=== PATIENT | male | born 1935 | race Caucasian/White ===

== ENCOUNTER 2017-08-16 14:13 | Outpatient (CLI) ==
[2016-02-20 15:17] VITALS: BMI 27.3
--- NOTE | 2017-08-16 15:04 | DI ---
EXAM: Pelvis AP view, bilateral hips lateral views HISTORY: Hip joint pain. FINDINGS / IMPRESSION: Trabecular markings are accentuated consistent with at least mild, diffuse demineralization. Questionable focal, subtle subchondral irregularity of the left medial aspect of the left femoral hea d. This could be post-traumatic or arthritic in nature. Hip joints were otherwise within normal limit s. Sacroiliac joints within normal limits. Transitional vertebral body anatomy at the lumbosacral junction is incidentally noted.
== END 2017-08-16 14:14 | disposition home or self-care (01) ==
LOC: RAD 14:13
PROVIDERS: ATTEND Family Medicine
DX: M25.551 Pain in right hip (principal)

== ENCOUNTER 2018-04-20 10:19 | Emergency (ER) | payer OTHER ==
[2018-04-20 10:26] VITALS: BP 110/64; TEMP 97.6; BMI 25.5
[2018-04-20] MEDS ORDERED: ASPIRIN CHEWABLE PO STA (10:42)
[2018-04-20] MEDS ORDERED: DILAUDID 0.5 MG/0.5 ML SYRINGE IVP STA (10:44)
--- NOTE | 2018-04-20 12:02 | ED.PDOC ---
General ED Provider: Dr. SHAUN CUENCA Chief Complaint: Chest Pain Stated Complaint: chest pain Time Seen by Physician: 10:20 Mode of Arrival: Walk-In Information Source: Patient Exam Limitations: No limitations Primary Care Provider: LIBBY VIDALES Nursing and Triage Documentation Reviewed and Agree: Yes Does patient meet sepsis criteria?: No System Inflammatory Response Syndrome: Not Applicable Sepsis Protocol: For patient's 13 years and over: Temp is 96.8 and below OR 101 and greater Pulse >90 BPM Resp >20/minute Acutely Altered Mental Status Are patient's symptoms suggestive of a new infection, such as: -Pneumonia -Skin, Soft Tissue -Endocarditis -UTI -Bone, Joint Infection -Implantable Device -Acute Abdominal Infection -Wound Infection -Meningitis -Blood Stream Catheter Infection -Unknown Cardiovascular Complaint Exam - Chest Pain Complaint/Exam Onset: Gradual Duration: 2 days leftside/left later chest pain steady Symptoms Are: Resolved Timing: Constant Length of Chest Pain Episodes: see above Initial Severity: Mild Current Severity: None Location: Reports: Midsternal, Left anterior Pain Radiates: Reports: None Character: Reports: Dull Aggravating: Reports: None Alleviating: Reports: Rest Associated Signs and Symptoms: Denies: Diaphoresis, Nausea, Vomiting, Fever, Palpitations, Cough, Hemoptysis, Back pain, Abdominal pain, Dizziness, Short of air, Calf pain, Calf swelling Related History: Reports: Similar episode Related Surgical History: Reports: Cardiac Cath (stent) History of Healthcare-Acquired Pneumonia: Reports: No AMI/ACS Risk Factors: Reports: Diabetes, Hypertension, Dyslipidemia TAD Risk Factors: Reports: Hypertension Pulmonary Embolism Risk Factors: Reports: None Prior Care for this Complaint: Yes (stent ) Recent Stress Test: No Recent Echo/LV Function: No JVD Present: No Subcutaneous Emphysema Present: No Diminshed Breath Sounds: No Reproducible Chest Wall Pain: No Bilateral Pulses Present: No If Risk Factors for AMI/ACS Consider: EKG, Cardiac Enzymes Differential Diagnoses: ACS, Stable Angina, Lower Resp. Infection Quality Indicators For Acute NM or Cardiac Chest Pain: EKG in 10min. Quality Indicator For Non-Traumatic Chest Pain/Syncope: EKG Performed Review of Systems - Review Of Systems Constitutional: Reports: No symptoms Eyes: Reports: No symptoms Ears, Nose, Mouth, Throat: Reports: No symptoms Respiratory: Reports: No symptoms Cardiac: Reports: Chest pain GI: Reports: No symptoms : Reports: No symptoms Musculoskeletal: Reports: No symptoms Skin: Reports: No symptoms Neurological: Reports: No symptoms Endocrine: Reports: No symptoms Hematologic/Lymphatic: Reports: No symptoms All Other Systems: Reviewed and Negative Past Medical History - Past Medical History Previously Healthy: No Endocrine: Reports: DM 2, Dyslipidemia Cardiovascular: Reports: CAD, Hypertension Respiratory: Reports: None Hematological: Reports: None Gastrointestinal: Reports: GERD Genitourinary: Reports: None Neuro/Psych: Reports: TIA Musculoskeletal: Reports: Arthritis Cancer: Reports: None - Surgical History General Surgical History: Reports: None, Stent (Stent Placement 2009 X2 HEART), Orthopedic (Neck Surgery 1992 ) - Family History Family History: Reports: None - Social History Smoking Status: Former smoker Hx Substance Use: No Alcohol Screening: None Physical Exam - Physical Exam Appearance: Well-appearing, No pain distress, Well-nourished Eyes: FRANK, EOMI, Conjunctiva clear ENT: Ears normal, Nose normal, Oropharynx normal Respiratory: Airway patent, Breath sounds clear, Breath sounds equal, Respirations nonlabored Cardiovascular: RRR, Pulses normal, No rub, No murmur GI/: Soft, Nontender, No masses, Bowel sounds normal, No Organomegaly Musculoskeletal: Normal strength, ROM intact, No edema, No calf tenderness Skin: Warm, Dry, Normal color Neurological: Sensation intact, Motor intact, Reflexes intact, Cranial nerves intact, Alert, Oriented Psychiatric: Affect appropriate, Mood appropriate Interpretation - Radiology Interpretation Radiology Interpretation By: Radiologist Radiology Results: No acute changes - Coffee Urn Attendant Rate: Dave Rhythm: Sinus - EKG Interpretation Rate: Dave Rhythm: Sinus [place]: Left ST Segment: Other (loss of the T wave BALANCE on lead v1 (usually negative) and the fact that amplitude of the T wave in v1 is greater than v6 T wave consistent with ischemia , 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.) Physician Notification - Case Discussed Physician Notified: pmd Time of Notification: 12:08 (transfer to [facility]) Critical Care Note - Critical Care Note Total Time (mins): 0 Course - Course Hematology/Chemistry: 04/20/18 10:45 04/20/18 10:45 Orders, Labs, Meds: Lab Review 04/20/18 04/20/18 10:45 10:45 WBC 4.17 L RBC 4.08 L Hgb 12.3 L Hct 36.6 L MCV 89.7 MCH 30.1 MCHC 33.6 RDW Coeff of Augustina 13.1 Plt Count 140 Immature Gran % (Auto) 0.0 Neut % (Auto) 53.1 Lymph % (Auto) 28.5 Tripp % (Auto) 9.8 Eos % (Auto) 7.4 H Baso % (Auto) 1.2 Immature Gran # (Auto) 0.0 Neut # (Auto) 2.2 Lymph # (Auto) 1.2 Tripp # (Auto) 0.4 Eos # (Auto) 0.3 Baso # (Auto) 0.1 Sodium 139 Potassium 4.3 Chloride 105 Carbon Dioxide 28 Anion Gap 10.3 BUN 17 Creatinine 1.10 Estimated GFR (MDRD) 64.00 BUN/Creatinine Ratio 15.45 Glucose 196 H Calcium 9.0 Total Bilirubin 1.0 AST 19 ALT 16 Alkaline Phosphatase 47 L Total Creatine Kinase 53 Troponin I 0.0130 Total Protein 6.7 Albumin 3.5 Globulin 3.2 Albumin/Globulin Ratio 1.09 Orders Category Date Time Status EKG-(ED ONLY) Stat CARDIO 04/20/18 10:39 Completed ED IV/MEDIPORT/POWERPORT .ONCE EMERGENCY 04/20/18 10:39 Active CBC W/ AUTO DIFF Stat LAB 04/20/18 10:45 Completed COMPREHENSIVE METABOLIC PANEL Stat LAB 04/20/18 10:45 Completed CREATINE KINASE Stat LAB 04/20/18 10:45 Completed TROPONIN I Stat LAB 04/20/18 10:45 Completed 0.9 % Sodium Chloride [Saline Flush] MEDS 04/20/18 10:38 Active 1 syr IVF PRN PRN Aspirin [Aspirin Chewable] MEDS 04/20/18 10:42 Discontinued 324 mg PO ONCE STA Hydromorphone HCl [Dilaudid 0.5 mg/0.5 ml Syringe] MEDS 04/20/18 10:44 Discontinued 0.5 mg IVP ONCE STA CHEST, 1V AP ONLY Stat RADS 04/20/18 11:57 Ordered Medications Generic Name Dose Route Start Last Admin Trade Name Freq PRN Reason Stop Dose Admin Sodium Chloride 1 syr 04/20/18 10:38 04/20/18 10:53 Saline Flush IVF 1 syr PRN PRN Administration To flush IV Discontinued Medications Generic Name Dose Route Start Last Admin Trade Name Freq PRN Reason Stop Dose Admin Aspirin 324 mg 04/20/18 10:42 04/20/18 10:54 Aspirin Chewable PO 04/20/18 10:43 324 mg ONCE STA Administration Hydromorphone HCl 0.5 mg 04/20/18 10:44 04/20/18 11:02 Dilaudid 0.5 Mg/0.5 Ml Syringe IVP 04/20/18 10:45 0.5 mg ONCE STA Administration Vital Signs: Temp Pulse Resp BP Pulse Ox 04/20/18 10:19 97.6 F 58 L 20 110/64 95 DELORES Risk Score DELORES Risk Score: Risk Score Odds of by 30D 0 0.1 (0.1-0.2) 1 0.3 (0.2-0.3) 2 0.4 (0.3-0.5) 3 0.7 (0.6-0.9) 4 1.2 (1.0-1.5) 5 2.2 (1.9-2.6) 6 3.0 (2.5-3.6) 7 4.8 (3.8-6.1) Departure - Departure Time of Disposition: 13:00 Disposition: TSF SHORT-TRM HOSP Discharge Problem: Chest pain Chest pain Qualifiers: Chest pain type: unspecified Qualified Code(s): R07.9 - Chest pain, unspecified Instructions: Angina (ED) Condition: Good Pt referred to PMD for follow-up: Yes IPMP verified?: No Additional Instructions: Please call your Family Physician as soon as possible to schedule a follow-up appointment. Allergies/Adverse Reactions: Allergies No Known Allergies Allergy (Verified 04/20/18 10:29) Home Medications: Ambulatory Orders Aspirin [Aspirin EC] 81 mg PO DAILYWM 09/16/15 Escitalopram Oxalate [Lexapro] 20 mg PO DAILY 12/03/15 Metoprolol Tartrate [Lopressor] 50 mg PO DAILY 12/03/15 Metformin HCl [Glucophage Xr] 750 mg PO DAILY 04/20/18 Transfer Form Completed: Yes Disposition Discussed With: Patient, Family
--- NOTE | 2018-04-20 12:14 | DI ---
EXAM: Chest one view, frontal view only. HISTORY: Chest pain. COMPARISON: 02/20/2016. FINDINGS: The heart size is normal. Atherosclerotic calcifications present. There is no pulmonary vascular congestion. The lungs are clear. No pleural effusion or pneumothorax is seen. No acute os seous abnormality is identified. Hiatal hernia noted. Since the prior study, there has been no signi ficant interval change. IMPRESSION: No acute cardiopulmonary process.
== END 2018-04-20 13:45 | disposition short-term general hospital (02) ==
LOC: ED 10:19
DX: R07.9 Chest pain, unspecified (principal); E11.9 Type 2 diabetes mellitus without complications; E78.5 Hyperlipidemia, unspecified; I10 Essential (primary) hypertension; I25.10 Atherosclerotic heart disease of native coronary artery without angina pectoris; Z95.5 Presence of coronary angioplasty implant and graft; Z79.899 Other long term (current) drug therapy; Z86.73 Personal history of transient ischemic attack (TIA), and cerebral infarction without residual deficits; R00.1 Bradycardia, unspecified
CPT/HCPCS: 36415; 80053; 82550; 84484; 85025; 93005; 93010; 96374; 99285

== ENCOUNTER 2018-12-05 15:17 | Outpatient (CLI) ==
--- NOTE | 2018-12-05 15:56 | DI ---
EXAM: RIGHT SHOULDER HISTORY: Fall, shoulder pain FINDINGS: Right shoulder three-view. No fracture or dislocation is identified. There is mild osteo arthritis of the glenohumeral and moderate osteoarthritis of the acromioclavicular joint. Soft tissu es within normal limits. IMPRESSION: 1. No fracture or dislocation.
--- NOTE | 2018-12-05 16:14 | DI ---
EXAM: Pelvis one-view HISTORY: Fall COMPARISON: None FINDINGS: Sacroiliac joints intact. Sacral arcuate intact. Hip joints appear normal. No fracture or dislocation. No focal soft tissue abnormality. IMPERSSION: No fracture or dislocation.
--- NOTE | 2018-12-05 16:15 | DI ---
EXAM: Lumbar spine five views, including flexion and extension lateral views HISTORY: 04/03/2013 COMPARISON: None TECHNIQUE: Five views lumbar spine were performed, including flexion and extension lateral views FINDINGS: Sacroiliac joints intact. Sacral arcuate lines intact. Mild chronic compression deformit y L1 appears unchanged. Transitional vertebral anatomy at the lumbosacral junction. No new fracture . No subluxation. Multilevel marginal osteophyte formation. Mild to moderate multilevel interverte bral disc space narrowing. Multilevel facet arthrosis. Atherosclerotic vascular calcification. IMPRESSION: 1. Chronic discogenic degenerative disease and facet arthrosis. 2. Mild chronic compression deformity L1.
== END 2018-12-05 15:18 | disposition home or self-care (01) ==
LOC: RAD 15:17
PROVIDERS: ATTEND Family Medicine
DX: M54.5 Low back pain (principal); W19.XXXA Unspecified fall, initial encounter

== ENCOUNTER 2019-01-22 13:32 | Emergency (ER) ==
[2019-01-22 13:43] VITALS: BP 137/77; TEMP 97.3; BMI 25.4
--- NOTE | 2019-01-22 13:49 | ED.PDOC ---
General ED Provider: Dr. JOSELYN ZUNIGA Chief Complaint: Chest Pain Stated Complaint: 83 with a complaint of chest pain no acute distress Time Seen by Physician: 13:45 Mode of Arrival: Walk-In Information Source: Patient Exam Limitations: No limitations Primary Care Provider: LIBBY VIDALES Nursing and Triage Documentation Reviewed and Agree: Yes Does patient meet sepsis criteria?: No System Inflammatory Response Syndrome: Not Applicable Sepsis Protocol: For patient's 13 years and over: Temp is 96.8 and below OR 101 and greater Pulse >90 BPM Resp >20/minute Acutely Altered Mental Status Are patient's symptoms suggestive of a new infection, such as: -Pneumonia -Skin, Soft Tissue -Endocarditis -UTI -Bone, Joint Infection -Implantable Device -Acute Abdominal Infection -Wound Infection -Meningitis -Blood Stream Catheter Infection -Unknown Cardiovascular Complaint Exam - Chest Pain Complaint/Exam Duration: today Symptoms Are: Still present Length of Chest Pain Episodes: hours Initial Severity: Mild Current Severity: Mild Location: Reports: Discrete Pain Radiates: Reports: Left shoulder Character: Reports: Aching Aggravating: Reports: Exertion Alleviating: Reports: Rest Related History: Reports: Similar episode Related Surgical History: Reports: None History of Healthcare-Acquired Pneumonia: Reports: No AMI/ACS Risk Factors: Reports: Hypertension TAD Risk Factors: Reports: Hypertension Pulmonary Embolism Risk Factors: Reports: None Recent Stress Test: No Recent Echo/LV Function: No JVD Present: No Subcutaneous Emphysema Present: No Unequal Pulses Noted: No Differential Diagnoses: ACS, Stable Angina, Unstable Angina, Pulmonary Edema Quality Indicators For Acute IN or Cardiac Chest Pain: EKG in 10min. Review of Systems - Review Of Systems Constitutional: Reports: Weakness Eyes: Reports: No symptoms Ears, Nose, Mouth, Throat: Reports: No symptoms Respiratory: Reports: No symptoms Cardiac: Reports: Chest pain GI: Reports: No symptoms : Reports: No symptoms Musculoskeletal: Reports: No symptoms Skin: Reports: No symptoms Neurological: Reports: No symptoms Endocrine: Reports: No symptoms Hematologic/Lymphatic: Reports: No symptoms All Other Systems: Reviewed and Negative Past Medical History - Past Medical History Previously Healthy: No Endocrine: Reports: DM 2, Dyslipidemia Cardiovascular: Reports: CAD, Hypertension Respiratory: Reports: None Hematological: Reports: None Gastrointestinal: Reports: GERD Genitourinary: Reports: None Neuro/Psych: Reports: TIA Musculoskeletal: Reports: Arthritis Cancer: Reports: None - Surgical History General Surgical History: Reports: None, Stent (Stent Placement 2009 X2 HEART), Orthopedic (Neck Surgery 1992 ) - Family History Family History: Reports: None - Social History Smoking Status: Never smoker Hx Substance Use: No Alcohol Screening: None - Immunizations Tetanus Shot up to Date: Yes Physical Exam - Physical Exam Appearance: Well-appearing Ill-appearing: Mild Pain Distress: None Eyes: FRANK, EOMI, Conjunctiva clear ENT: Ears normal, Nose normal, Oropharynx normal Neck: Supple Respiratory: Airway patent, Breath sounds clear, Breath sounds equal Cardiovascular: RRR, Pulses normal GI/: Soft, Nontender Musculoskeletal: Normal strength Skin: Warm, Dry, Normal color Neurological: Sensation intact, Motor intact, Reflexes intact, Cranial nerves intact, Alert, Oriented Psychiatric: Affect appropriate Critical Care Note - Critical Care Note Total Time (mins): 0 Course - Course Hematology/Chemistry: 01/22/19 13:58 01/22/19 13:58 Orders, Labs, Meds: Lab Review 01/22/19 01/22/19 13:58 13:58 WBC 5.21 RBC 4.15 L Hgb 12.4 L Hct 37.4 L MCV 90.1 MCH 29.9 MCHC 33.2 RDW Coeff of Augustina 13.0 Plt Count 179 Immature Gran % (Auto) 0.2 Neut % (Auto) 44.5 Lymph % (Auto) 29.9 Harlan % (Auto) 12.7 H Eos % (Auto) 11.5 H Baso % (Auto) 1.2 Immature Gran # (Auto) 0.0 Neut # (Auto) 2.3 Lymph # (Auto) 1.6 Harlan # (Auto) 0.7 Eos # (Auto) 0.6 Baso # (Auto) 0.1 Sodium 140.2 Potassium 4.38 Chloride 105.4 Carbon Dioxide 26.2 Anion Gap 12.98 BUN 16.7 Creatinine 0.87 Estimated GFR (MDRD) 84.00 BUN/Creatinine Ratio 19.19 Glucose 116.5 H Calcium 9.36 Total Bilirubin 0.72 AST 32.8 ALT 20.5 Alkaline Phosphatase 56.6 Total Creatine Kinase 81.6 Troponin I < 0.012 Total Protein 7.01 Albumin 4.16 Globulin 2.85 Albumin/Globulin Ratio 1.45 Orders Category Date Time Status EKG-(ED ONLY) Stat CARDIO 01/22/19 13:53 Completed ED APPLY O2 .ONCE EMERGENCY 01/22/19 13:53 Active CBC W/ AUTO DIFF Stat LAB 01/22/19 13:58 Completed COMPREHENSIVE METABOLIC PANEL Stat LAB 01/22/19 13:58 Completed CREATINE KINASE Stat LAB 01/22/19 13:58 Completed TROPONIN I Stat LAB 01/22/19 13:58 Completed Aspirin [Aspirin Chewable] MEDS 01/22/19 14:03 Discontinued 324 mg PO ONCE STA CHEST, 1V AP ONLY Stat RADS 01/22/19 13:53 Completed Medications Discontinued Medications Generic Name Dose Route Start Last Admin Trade Name Caryn PRN Reason Stop Dose Admin Aspirin 324 mg 01/22/19 14:03 01/22/19 14:04 Aspirin Chewable PO 01/22/19 14:04 324 mg ONCE STA Administration Vital Signs: Temp Pulse Resp BP Pulse Ox 01/22/19 13:35 97.3 F L 55 L 18 137/77 95 DELORES Risk Score DELORES Risk Score: Risk Score Odds of by 30D 0 0.1 (0.1-0.2) 1 0.3 (0.2-0.3) 2 0.4 (0.3-0.5) 3 0.7 (0.6-0.9) 4 1.2 (1.0-1.5) 5 2.2 (1.9-2.6) 6 3.0 (2.5-3.6) 7 4.8 (3.8-6.1) Departure - Departure Time of Disposition: 15:43 Disposition: HOME SELF-CARE Discharge Problem: Chest pain in adult Instructions: Chest Pain (ED) Condition: Good Pt referred to PMD for follow-up: Yes IPMP verified?: No Allergies/Adverse Reactions: Allergies No Known Allergies Allergy (Verified 01/22/19 13:51) Home Medications: Ambulatory Orders Aspirin [Aspirin EC] 81 mg PO DAILYWM 09/16/15 Escitalopram Oxalate [Lexapro] 20 mg PO DAILY 12/03/15 Metoprolol Tartrate [Lopressor] 50 mg PO DAILY 12/03/15 Metformin HCl [Glucophage Xr] 750 mg PO DAILY 04/20/18 Disposition Discussed With: Patient, Family
[2019-01-22] MEDS ORDERED: ASPIRIN CHEWABLE PO STA ×2 (13:54→14:03)
--- NOTE | 2019-01-22 15:10 | DI ---
EXAM: Single view of the chest. History: Chest pain. Comparison: Chest radiograph 04/20/2018 Findings: Heart size is borderline enlarged. No focal consolidation. No appreciable pleural fluid and no pneumothorax. Atherosclerotic vascular calcifications. No acute osseous abnormalities. Impression: No acute cardiopulmonary process
== END 2019-01-22 16:03 | disposition home or self-care (01) ==
LOC: ED 13:32
DX: R07.9 Chest pain, unspecified (principal); I10 Essential (primary) hypertension; R53.1 Weakness; E11.9 Type 2 diabetes mellitus without complications; E78.5 Hyperlipidemia, unspecified; I25.10 Atherosclerotic heart disease of native coronary artery without angina pectoris; Z95.5 Presence of coronary angioplasty implant and graft; Z79.899 Other long term (current) drug therapy; Z86.73 Personal history of transient ischemic attack (TIA), and cerebral infarction without residual deficits
CPT/HCPCS: 36415; 80053; 82550; 84484; 85025; 93005; 93010; 99283

== ENCOUNTER 2019-04-12 16:24 | Emergency (ER) ==
[2019-04-12 16:30] VITALS: BP 134/51; TEMP 98.9; BMI 25.5
--- NOTE | 2019-04-12 17:13 | ED.PDOC ---
General ED Provider: Dr. JEROME BAIG Chief Complaint: Extremity Pain/Injury Stated Complaint: Marcello fell onto left arm; abrasion - no recent tetanus - happened prior to admission. Time Seen by Physician: 17:11 Mode of Arrival: Walk-In Information Source: Patient Exam Limitations: No limitations Primary Care Provider: LIBBY VIDALES Nursing and Triage Documentation Reviewed and Agree: Yes Does patient meet sepsis criteria?: No System Inflammatory Response Syndrome: Not Applicable Sepsis Protocol: For patient's 13 years and over: Temp is 96.8 and below OR 101 and greater Pulse >90 BPM Resp >20/minute Acutely Altered Mental Status Are patient's symptoms suggestive of a new infection, such as: -Pneumonia -Skin, Soft Tissue -Endocarditis -UTI -Bone, Joint Infection -Implantable Device -Acute Abdominal Infection -Wound Infection -Meningitis -Blood Stream Catheter Infection -Unknown Review of Systems - Review Of Systems Constitutional: Reports: No symptoms Respiratory: Reports: No symptoms Cardiac: Reports: No symptoms Musculoskeletal: Reports: No symptoms. Denies: Joint pain Skin: Reports: No symptoms, Lesions (Skin tear Left forearm) Neurological: Reports: No symptoms (nanotechnologist equal) All Other Systems: Reviewed and Negative Past Medical History - Past Medical History Previously Healthy: No Endocrine: Reports: DM 2, Dyslipidemia Cardiovascular: Reports: CAD, Hypertension Respiratory: Reports: None Hematological: Reports: None Gastrointestinal: Reports: GERD Genitourinary: Reports: None Neuro/Psych: Reports: TIA Musculoskeletal: Reports: Arthritis Cancer: Reports: None - Surgical History General Surgical History: Reports: None, Stent (Stent Placement 2009 X2 HEART), Orthopedic (Neck Surgery 1992 ) - Family History Family History: Reports: None - Social History Smoking Status: Never smoker Hx Substance Use: No Alcohol Screening: None Physical Exam - Physical Exam Appearance: Well-appearing Ill-appearing: None (limited to skin tear L forearm - minimal discomfort) Pain Distress: Mild ENT: Oropharynx normal Neck: Supple Respiratory: Airway patent, Breath sounds clear, Breath sounds equal, Respirations nonlabored Cardiovascular: RRR, Pulses normal Musculoskeletal: Normal strength, ROM intact (flexion and extension intact L elbow; pronation and suppination L forearm), No edema Skin: Warm, Dry, Normal color (Except as noted - skin tear L forearm distal to elbow) Neurological: Sensation intact, Motor intact, Alert, Oriented Psychiatric: Affect appropriate, Mood appropriate Critical Care Note - Critical Care Note Total Time (mins): 8 Course - Course Orders, Labs, Meds: Orders Category Date Time Status Wound care [ED WOUND CARE] .ONCE EMERGENCY 04/12/19 17:18 Active Diphth,Pertuss(Acell),Tet Vac [Boostrix] MEDS 04/12/19 17:10 Discontinued 0.5 ml IM .ONCE ONE Neomy Sulf/Bacitra/Polymyxin B [Neosporin Oint 0.9 gm MEDS 04/12/19 17:19 Discontinued Packet] 1 packet TP ONCE STA Medications Discontinued Medications Generic Name Dose Route Start Last Admin Trade Name Freq PRN Reason Stop Dose Admin Diphtheria/Pertussis/Tetanus Vacc 0.5 ml 04/12/19 17:10 Boostrix IM 04/12/19 17:11 .ONCE ONE Neomycin/Polymyxin/Bacitracin 1 packet 04/12/19 17:19 Neosporin Oint 0.9 Gm Packet TP 04/12/19 17:20 ONCE STA Vital Signs: Temp Pulse Resp BP Pulse Ox 04/12/19 16:25 98.9 F 69 14 134/51 L 95 Departure - Departure Time of Disposition: 17:18 Disposition: HOME SELF-CARE Discharge Problem: Skin tear of forearm without complication Qualifiers: Encounter type: initial encounter Laterality: left Qualified Code(s): S51.812A - Laceration without foreign body of left forearm, initial encounter Instructions: Skin Tear (ED) Condition: Good Pt referred to PMD for follow-up: Yes (Call for appointment) IPMP verified?: No (N/A) Additional Instructions: Watch for signs of infection; follow up with primary care as needed. Keep clean and dry for at least 2 days. Allergies/Adverse Reactions: Allergies No Known Allergies Allergy (Verified 01/22/19 13:51) Home Medications: Ambulatory Orders Aspirin [Aspirin EC] 81 mg PO DAILYWM 09/16/15 Escitalopram Oxalate [Lexapro] 20 mg PO DAILY 12/03/15 Metoprolol Tartrate [Lopressor] 50 mg PO DAILY 12/03/15 Metformin HCl [Glucophage Xr] 750 mg PO DAILY 04/20/18 Disposition Discussed With: Patient (and spouse)
[2019-04-12] MEDS: BOOSTRIX IM ONE (17:21)
[2019-04-12] MEDS: NEOSPORIN OINT 0.9 GM PACKET TP STA (17:29)
== END 2019-04-12 17:36 | disposition home or self-care (01) ==
LOC: ED 16:24
DX: S51.812A Laceration without foreign body of left forearm, initial encounter (principal); W22.8XXA Striking against or struck by other objects, initial encounter
CPT/HCPCS: 90471; 90715; 99282